=== PATIENT | male | born 1955 | race Caucasian/White ===

== ENCOUNTER 2019-05-12 19:11 | Emergency (ER) | payer MEDICARE, MEDICAID ==
[~2019-05-12] VITALS: Ht 172.7 cm; Wt 81.8 kg
[~2019-05-12 19:11] MED LIST: AZI25OT PO
[2019-05-12 19:12] VITALS: BP 165/97
--- NOTE | 2019-05-12 19:19 | NUR ---
Pt's "person to notify" telephone numbers are disconnected. Next of kin number has not set up [email or web address]
== END 2019-05-12 22:55 | disposition home or self-care (01) ==
LOC: ER 19:11
DX: F03.90 Unspecified dementia, unspecified severity, without behavioral disturbance, psychotic disturbance, mood disturbance, and anxiety (principal); I10 Essential (primary) hypertension; F15.90 Other stimulant use, unspecified, uncomplicated; F17.210 Nicotine dependence, cigarettes, uncomplicated; Z59.0 Homelessness; Z56.0 Unemployment, unspecified; Z86.73 Personal history of transient ischemic attack (TIA), and cerebral infarction without residual deficits
CPT/HCPCS: 99283